=== PATIENT | female | born 1930 | race Caucasian/White ===

== ENCOUNTER 2019-04-01 11:03 | Emergency (ER) | payer MEDICARE ==
[2019-04-01] MEDS ORDERED: Magnesium Citrate Solution 296 ML Bottle PO ONE ×2 (12:08→15:17)
--- NOTE | 2019-04-01 12:11 | CR ---
Indication: Abdominal pain. Technique: AP supine and upright views of the abdomen and pelvis were obtained. A PA view of the chest was obtained. Comparison: None Findings: The heart is normal in size. The lungs are clear. No infiltrate, pleural effusion, or pneumothorax is identified. No free air is identified. A metallic radiopacity is identified overlying the L4 vertebral body. This of uncertain significance. The bowel gas pattern is nonobstructive. Impression: Nonobstructive bowel gas pattern. No free air. Dictated by Milana Irving MD @ Apr 01 2019 12:09PM Signed by Dr. Milana Irving @ Apr 01 2019 12:10PM
[2019-04-01 12:43] LABS: BLOOD UREA NITROGEN,BUN 11 mg/dL (7.0-18.0); CARBON DIOXIDE,CO2 29.1 mmol/L (21.0-32.0); CHLORIDE,CL 107 mmol/L (98-107); GLUCOSE RANDOM 94 mg/dL (74-106); POTASSIUM,K 4.2 mmol/L (3.5-5.1); SODIUM,NA 142 mmol/L (136-145)
--- NOTE | 2019-04-01 13:46 | EDM.PDOC ---
ED HPI GENERAL MEDICAL PROBLEM - General Chief Complaint: Gastrointestinal Problem Stated Complaint: SEVERE CONSTIPATION Time Seen by Provider: 04/01/19 11:10 Source of Information: Reports: Patient History Limitations: Reports: No Limitations - History of Present Illness INITIAL COMMENTS - FREE TEXT/NARRATIVE: History of present illness: []Patient has been constipated for over a week. She states that she's had this problem in the past. She is not vomiting denies any fevers, chills or abdominal pain. She has no blood in her stool or overflow diarrhea. Review of systems: As per history of present illness and below otherwise all systems reviewed and negative. Past medical history: As per history of present illness and as reviewed below otherwise noncontributory. Surgical history: As per history of present illness and as reviewed below otherwise noncontributory. Social history: No reported history of drug or alcohol abuse. Family history: As per history of present illness and as reviewed below otherwise noncontributory. Physical exam: General: Well developed, well nourished in NAD HEENT: Atraumatic, normocephalic, pupils reactive, negative for conjunctival pallor or scleral icterus, mucous membranes moist, throat clear, neck supple, nontender, trachea midline. Lungs: Clear to auscultation, breath sounds equal bilaterally, chest nontender. Heart: S1S2, regular, negative for clicks, rubs, or JVD. Abdomen: NABS, Soft, nondistended, nontender. Negative for masses or hepatosplenomegaly. Negative for costovertebral tenderness. Pelvis: Stable nontender. Genitourinary: Deferred. Rectal: Deferred. Extremities: Atraumatic, negative for cords or calf pain. Neurovascular unremarkable. Neuro: Awake, alert, oriented. Cranial nerves II through XII unremarkable. Cerebellum unremarkable. Motor and sensory unremarkable throughout. Exam nonfocal. Skin:warm and dry Diagnostics: Acute abdominal series showing normal bowel gas patterns no obstruction CBC, chemistry, INR Therapeutics: Mag citrate ED Course: Stable Impression: Constipation Prescriptions: Magnesium Citrate Plan: Take meds as directed, follow up with your primary care physician, return to ER if symptoms worsen or change. Definitive disposition and diagnosis as appropriate pending reevaluation and review of above. abdomen Pain Score (Numeric/FACES): 2 - Related Data Allergies Allergy/AdvReac Type Severity Reaction Status Date / Time cetirizine Allergy Other Verified 04/01/19 11:37 iodine Allergy Swelling Verified 04/01/19 11:37 lidocaine Allergy Swelling Verified 04/01/19 11:37 contrast Allergy Swelling Uncoded 04/01/19 11:37 Home Meds: Home Meds Aspirin 81 mg PO DAILY 05/10/18 [History] Bisacodyl [Dulcolax] 5 mg PO DAILY 05/10/18 [History] Cholecalciferol (Vitamin D3) [Vitamin D3] 1,000 units PO BID 05/10/18 [History] Digoxin [Digox] 125 mcg PO DAILY 05/10/18 [History] Diltiazem HCl [Diltiazem 24Hr Cd] 180 mg PO DAILY 05/10/18 [History] Losartan [Cozaar] 25 mg PO DAILY 05/10/18 [History] [place]-3 Fatty Acids [[place]-3] 100 mg PO BID 05/10/18 [History] atorvaSTATin [Lipitor] 10 mg PO WITHDINNER 05/10/18 [History] metFORMIN [Glucophage XR] 250 mg PO DAILY 05/10/18 [History] Warfarin [Coumadin] 3 mg PO SUMOTUWETHSA@1400 04/01/19 [History] Warfarin [Coumadin] 4.5 mg PO FR@1400 04/01/19 [History] Past Medical History HEENT History: Reports: Cataract, Impaired Vision Cardiovascular History: Reports: Afib, Heart Failure, Hypertension Other Cardiovascular History: 5 stents placed 2013. DVT Respiratory History: Reports: PE Gastrointestinal History: Reports: Hemorrhoids Musculoskeletal History: Reports: Arthritis, Back Pain, Chronic, Osteoarthritis Neurological History: Reports: Concussion, CVA Endocrine/Metabolic History: Reports: Diabetes, Type II Hematologic History: Reports: Anemia Other Oncologic History: malignant polyps hx - Infectious Disease History Infectious Disease History: Reports: Chicken Pox, Measles, Mumps - Past Surgical History HEENT Surgical History: Reports: Adenoidectomy, Tonsillectomy GI Surgical History: Reports: Appendectomy Female Surgical History: Reports: Kidney stone extraction, Oophorectomy Other Musculoskeletal Surgeries/Procedures:: back surgery Social & Family History - Family History Family Medical History: Noncontributory - Tobacco Use Smoking Status *Q: Former Smoker Used Tobacco, but Quit: Yes Month/Year Tobacco Last Used: 1995 - Caffeine Use Caffeine Use: Reports: Coffee, Tea - Recreational Drug Use Recreational Drug Use: No ED ROS GENERAL - Review of Systems Review Of Systems: See Below ED EXAM, GI/ABD - Physical Exam Exam: See Below Course - Vital Signs Last Recorded V/S: Last Vital Signs Temp 96.9 F 04/01/19 11:37 Pulse 73 04/01/19 11:37 Resp 18 04/01/19 11:37 BP 141/63 H 04/01/19 11:37 Pulse Ox 98 04/01/19 11:37 - Orders/Labs/Meds Labs: Laboratory Tests 04/01/19 04/01/19 04/01/19 Range/Units 12:16 12:16 12:16 WBC 6.36 (4.0-11.0) K/uL RBC 4.97 (4.30-5.90) M/uL Hgb 15.6 (12.0-16.0) g/dL Hct 47.5 H (36.0-46.0) % MCV 95.6 (80.0-98.0) fL MCH 31.4 (27.0-32.0) pg MCHC 32.8 (31.0-37.0) g/dL RDW Std Deviation 52.1 (28.0-62.0) fl RDW Coeff of Mine 15 (11.0-15.0) % Plt Count 116 L (150-400) K/uL MPV 10.70 (7.40-12.00) fL Neut % (Auto) 57.4 (48.0-80.0) % Lymph % (Auto) 32.4 (16.0-40.0) % [place] % (Auto) 9.4 (0.0-15.0) % Eos % (Auto) 0.5 (0.0-7.0) % Baso % (Auto) 0.3 (0.0-1.5) % Neut # (Auto) 3.7 (1.4-5.7) K/uL Lymph # (Auto) 2.1 (0.6-2.4) K/uL [place] # (Auto) 0.6 (0.0-0.8) K/uL Eos # (Auto) 0.0 (0.0-0.7) K/uL Baso # (Auto) 0.0 (0.0-0.1) K/uL Nucleated RBC % 0.0 /100WBC Nucleated RBCs # 0 K/uL INR 1.62 Sodium 142 (136-145) mmol/L Potassium 4.2 (3.5-5.1) mmol/L Chloride 107 (98-107) mmol/L Carbon Dioxide 29.1 (21.0-32.0) mmol/L BUN 11 (7.0-18.0) mg/dL Creatinine 0.6 (0.6-1.0) mg/dL Est Cr Clr Drug Dosing 59.51 mL/min Estimated GFR (MDRD) > 60.0 ml/min Glucose 94 (74-106) mg/dL Calcium 9.4 (8.5-10.1) mg/dL Total Bilirubin 1.1 H (0.2-1.0) mg/dL AST 21 (15-37) IU/L ALT 13 L (14-63) IU/L Alkaline Phosphatase 73 (46-116) U/L Total Protein 6.5 (6.4-8.2) g/dL Albumin 3.4 (3.4-5.0) g/dL Globulin 3.1 (2.6-4.0) g/dL Albumin/Globulin Ratio 1.1 (0.9-1.6) Meds: Medications Discontinued Medications Generic Name Dose Route Start Last Admin Trade Name Steveq PRN Reason Stop Dose Admin Magnesium Citrate 295 ml 04/01/19 12:08 04/01/19 12:50 Citrate Of Magnesia PO 04/01/19 12:09 295 ml ONETIME ONE Administration Magnesium Citrate 296 ml 04/01/19 15:17 Citrate Of Magnesia PO 04/01/19 15:18 ONETIME ONE Departure - Departure Time of Disposition: 15:18 Disposition: Home, Self-Care 01 Condition: Good Clinical Impression: Constipation Qualifiers: Constipation type: unspecified constipation type Qualified Code(s): K59.00 - Constipation, unspecified - Discharge Information *PRESCRIPTION DRUG MONITORING PROGRAM REVIEWED*: Not Applicable *COPY OF PRESCRIPTION DRUG MONITORING REPORT IN PATIENT ROBIN: Not Applicable Instructions: Constipation, Adult, [id number] Referrals: PCP,Unknown [Primary Care Provider] - Forms: ED Department Discharge Additional Instructions: The following information is given to patients seen in the emergency department who are being discharged to home. This information is to outline your options for follow-up care. We provide all patients seen in our emergency department with a follow-up referral. The need for follow-up, as well as the timing and circumstances, are variable depending upon the specifics of your emergency department visit. If you don't have a primary care physician on staff, we will provide you with a referral. We always advise you to contact your personal physician following an emergency department visit to inform them of the circumstance of the visit and for follow-up with them and/or the need for any referrals to a consulting specialist. The emergency department will also refer you to a specialist when appropriate. This referral assures that you have the opportunity for follow-up care with a specialist. All of these measure are taken in an effort to provide you with optimal care, which includes your follow-up. Under all circumstances we always encourage you to contact your private physician who remains a resource for coordinating your care. When calling for follow-up care, please make the office aware that this follow-up is from your recent emergency room visit. If for any reason you are refused follow-up, please contact the [facility] Emergency Department at and asked to speak to the emergency department charge nurse. Take meds as directed, follow up with your primary care physician, return to ER if symptoms worsen or change. [facility] Primary Care [address] [place] [id number]
== END 2019-04-01 15:20 | disposition home or self-care (01) ==
LOC: MW.ED 11:03
DX: K59.00 Constipation, unspecified (principal); I11.0 Hypertensive heart disease with heart failure; I50.9 Heart failure, unspecified; E11.9 Type 2 diabetes mellitus without complications; Z88.8 Allergy status to other drugs, medicaments and biological substances; Z91.041 Radiographic dye allergy status; Z79.82 Long term (current) use of aspirin; Z79.899 Other long term (current) drug therapy; Z87.891 Personal history of nicotine dependence
CPT/HCPCS: 36415; 74022; 80053; 85025; 85610; 99283; A9270